=== PATIENT | male | born 1995 | race Caucasian/White ===

== ENCOUNTER 2016-04-20 12:12 | Emergency (ER) | payer SELFPAY ==
[~2016-04-20] VITALS: Ht 182.9 cm; Wt 79.5 kg
[2016-04-20 12:14] VITALS: BP 157/74; PULSE 92; RESP 16; TEMP 98.5; O2SAT 95
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
--- NOTE | 2016-04-20 13:11 | RADRPT ---
EXAM DATE/TIME: 04/20/2016 12:43 [facility] COMPARISON: No previous studies available for comparison. INDICATIONS : Right ankle pain. Patient states he rolled his ankle yesterday. MEDICAL HISTORY : None. SURGICAL HISTORY : None. ENCOUNTER: Initial ACUITY: 2 days PAIN SCORE: 5/10 LOCATION: Right lateral ankle. FINDINGS: Three view exam was performed of the right ankle. There is a tiny cortical also fracture of the tip o f the fibula. There is soft tissue swelling over the lateral malleolus. There is good alignment at th e mortise joint. There are some mild degenerative changes along the medial malleolus.. CONCLUSION: Tiny mildly displaced cortical chip fracture off the tip of the fibula. Que Rodney MD on April 20, 2016 at 13:09 Board Certified Radiologist. This report was verified electronically.
== END 2016-04-20 14:03 | disposition home or self-care (01) ==
LOC: NEPB 12:12
DX: S82.401A Unspecified fracture of shaft of right fibula, initial encounter for closed fracture (principal); V18.0XXA Pedal cycle driver injured in noncollision transport accident in nontraffic accident, initial encounter; Y93.55 Activity, bike riding; Y92.9 Unspecified place or not applicable; Y99.9 Unspecified external cause status
CPT/HCPCS: 29515; 73610

== ENCOUNTER 2017-02-22 13:53 | Inpatient (IN) | payer MEDICAID, OTHER ==
[~2017-02-22] VITALS: Ht 180.3 cm; Wt 100.6 kg
[2017-02-22 14:00] VITALS: BP 153/91; PULSE 90; RESP 20; TEMP 98.3; O2SAT 99
--- NOTE | 2017-02-22 14:59 | PD ---
HPI Chief Complaint: Injury Time Seen by Provider: 14:50 Travel History International Travel<30 days: No Contact w/Intl Traveler<30days: No Traveled to known affect area: No History of Present Illness HPI 21-year-old male complains of right leg pain. Patient was doing trampoline and did a back flip and landed on his leg. Patient states he has severe pain localized to right low leg. Patient states the pain is sharp pain localized to right low leg. Patient denies any pain radiation. Patient states that the pain is worse with weightbearing. On a scale of 1-10 the pain is a 10. PFSH Past Medical History Medical History: Denies Significant Hx Social History Alcohol Use: No Tobacco Use: No Substance Use: No Allergies-Medications (Allergen,Severity, Reaction): Coded Allergies: No Known Allergies (Unverified Adverse Reaction, Unknown, 02/22/17) Reported Meds & Prescriptions Reported Meds & Active Scripts Active No Active Prescriptions or Reported Medications Review of Systems General / Constitutional: No: Fever Eyes: No: Visual changes HENT: No: Headaches Cardiovascular: No: Chest Pain or Discomfort Respiratory: No: Shortness of Breath Gastrointestinal: No: Abdominal Pain Genitourinary: No: Dysuria Musculoskeletal: Positive: Pain Skin: No Rash Neurologic: No: Weakness Psychiatric: No: Depression Endocrine: No: Polydipsia Hematologic/Lymphatic: No: Easy Bruising Physical Exam Narrative GENERAL: Well-nourished, well-developed patient. SKIN: Focused skin assessment warm/dry. HEAD: Normocephalic. EYES: No scleral icterus. No injection or drainage. NECK: Supple, trachea midline. No JVD or lymphadenopathy. CARDIOVASCULAR: Regular rate and rhythm without murmurs, gallops, or rubs. RESPIRATORY: Breath sounds equal bilaterally. No accessory muscle use. GASTROINTESTINAL: Abdomen soft, non-tender, nondistended. MUSCULOSKELETAL: Patient has mild soft tissue swelling with moderate to severe tenderness distal tibia-fibula area. Sensorimotor function distally intact. Good DP pulses. BACK: Nontender without obvious deformity. No CVA tenderness. Neurologic exam normal. Data Data Last Documented VS Vital Signs Date Time Temp Pulse Resp B/P (MAP) Pulse Ox O2 Delivery O2 Flow Rate FiO2 02/22/17 14:00 98.3 90 20 153/91 (111) 99 Room Air Orders Orders Tibia/Fibula (Ap/Lat) (02/22/17 14:54) Sodium Chlor 0.9% 1000 Ml Inj (Ns 1000 M (02/22/17 15:00) Morphine Inj (Morphine Inj) (02/22/17 15:00) MDM Medical Decision Making Medical Screen Exam Complete: Yes Emergency Medical Condition: Yes Differential Diagnosis Differential diagnosis including contusion, fracture, dislocation. Narrative Course 21-year-old male with injury to right low leg. Normal saline solution 1 25 cc an hour. Morphine 2 mg IV. Zofran 4 mg IV. Scripts No Active Prescriptions or Reported Meds Arjun Morgan MD Feb 22, 2017 14:59
[2017-02-22 15:00] VITALS: BP 129/85; PULSE 78; RESP 16; O2SAT 98
[2017-02-22] MEDS ORDERED: MORPHINE SULFATE 2 MG/ML INJ IV PUSH ONE ×2 (15:00→15:45)
[2017-02-22] MEDS: SODIUM CHLOR 0.9% 1000 ML INJ 1,000 ML IV SCH ×2 (15:07→21:50)
--- NOTE | 2017-02-22 15:54 | RADRPT ---
EXAM DATE/TIME: 02/22/2017 15:14 [facility] COMPARISON: No previous studies available for comparison. INDICATIONS : Pain post fall. MEDICAL HISTORY : None. SURGICAL HISTORY : None. ENCOUNTER: Initial ACUITY: 1 day PAIN SCORE: 10/10 LOCATION: Right Lower leg. FINDINGS: Two view examination of the right tibia demonstrates a oblique fracture through the midshaft of the l eft tibia. There is slight medial angulation. There is a medial fibular fracture with a prominent int ercalary fragment. Bony mineralization is normal. The soft tissue structures are intact. CONCLUSION: Spiral fractures of both the tibia and fibula. Nomi Saunders MD on February 22, 2017 at 15:51 Board Certified Radiologist. This report was verified electronically.
[2017-02-22 16:00] VITALS: BP 152/78; PULSE 80; RESP 18; O2SAT 99
[2017-02-22 16:11] LABS: AUTOMATED NEUTROPHIL # 11.5 TH/MM3 (1.8-7.7); BASOPHIL % 0.2 % (0.0-2.0); EOSINOPHIL % 0.3 % (0.0-4.0); HEMATOCRIT 46.7 % (39.0-51.0); HEMO FLAGS DIFF FINAL; LYMPH % 13.1 % (9.0-44.0); LYMPHOCYTE # 1.8 TH/MM3 (1.0-4.8); MEAN CELL VOLUME 91.8 FL (80.0-100.0); MEAN CORPUSCULAR HEMOGLOBIN 31.1 PG (27.0-34.0); MEAN CORPUSCULAR HGB CONC 33.8 % (32.0-36.0); MONO % 4.3 % (0.0-8.0); NEUT % 82.1 % (16.0-70.0); PLATELET COUNT 285 TH/MM3 (150-450); RED BLOOD COUNT 5.08 MIL/MM3 (4.50-5.90); RED CELL DISTRIBUTION WIDTH 12.3 % (11.6-17.2)
[2017-02-22 16:41] LABS: BICARBONATE 29.2 MEQ/L (21.0-32.0)
[2017-02-22 17:00] VITALS: BP 154/89; PULSE 86; RESP 16; O2SAT 100
[2017-02-22] MEDS ORDERED: BISACODYL 10 MG SUPP RECTAL PRN (17:15)
[2017-02-22] MEDS ORDERED: MAGNESIUM HYDROXIDE SUSP 30 ML CUP PO PRN (17:15)
[2017-02-22] MEDS ORDERED: diphenhydrAMINE HCL 25 MG CAP PO PRN (17:15)
[2017-02-22] MEDS ORDERED: SENNOSIDES 8.6 MG TAB PO PRN (17:15)
[2017-02-22] MEDS ORDERED: LACTULOSE SYRUP 20 GM/30 ML CUP PO PRN (17:15)
[2017-02-22] MEDS ORDERED: ACETAMINOPHEN/HYDROcodone 325 MG/7.5 MG TAB PO PRN (17:15)
[2017-02-22] MEDS ORDERED: SODIUM CHLORIDE 0.9% FLUSH 10 ML FLUSH IV FLUSH PRN (17:15)
[2017-02-22] MEDS ORDERED: ONDANSETRON HCL 4 MG/2 ML VIAL IVP PRN (17:15)
[2017-02-22] MEDS: ACETAMINOPHEN/HYDROcodone 325 MG/10 MG TAB PO PRN ×2 (17:54→21:56)
[2017-02-22 18:05] VITALS: BP 159/90; PULSE 94; RESP 16; TEMP 97.8; O2SAT 99
[2017-02-22] MEDS: MORPHINE SULFATE 2 MG/ML INJ IV PUSH PRN ×2 (19:52→23:38)
[2017-02-22] MEDS: DOCUSATE SODIUM 50 MG/SENNA 8.6 MG TAB PO SCH (19:55)
[2017-02-22 20:48] VITALS: BP 155/87; PULSE 95; RESP 18; TEMP 99.7; O2SAT 99
[2017-02-22] MEDS: SODIUM CHLORIDE 0.9% FLUSH 10 ML FLUSH IV FLUSH SCH (21:00)
[2017-02-23 00:06] VITALS: BP 153/85; PULSE 86; RESP 18; TEMP 98; O2SAT 99
[2017-02-23] MEDS: SODIUM CHLOR 0.9% 1000 ML INJ 1,000 ML IV SCH ×3 (03:20→23:00)
[2017-02-23] MEDS: ACETAMINOPHEN/HYDROcodone 325 MG/10 MG TAB PO PRN ×3 (03:50→18:51)
[2017-02-23 04:39] VITALS: BP 152/83; PULSE 74; RESP 18; TEMP 97.7; O2SAT 100
[2017-02-23] MEDS ORDERED: LACTATED RINGER'S 1000 ML IV PRN (05:45)
[2017-02-23] MEDS ORDERED: CHLORHEXIDINE GLUCONATE 2 % 1 PACK (2 CLOTHS) TOPICAL PRN (05:45)
[2017-02-23] MEDS ORDERED: POVIDONE IODINE 5% (ANTISEPSIS KIT) 4 APPLICATIONS EACH NARE PRN (05:45)
--- NOTE | 2017-02-23 06:43 | HHI.HP ---
HPI Service Orthopedic Surgeons Primary Care Physician No Primary Care Physician Admission Diagnosis Right Tibia and fibula fractures Diagnoses: (1) Tibia/fibula fracture, shaft Diagnosis: Principal Chief Complaint: Right leg pain s/p fall Travel History International Travel<30 Days: No Contact w/Intl Traveler <30 Da: No Traveled to Known Affected Are: No History of Present Illness Patient admitted to hospital s/p fall from trampoline doing back flip. reports right leg pain. no other complaint. denies numbness, tingling, loss of sensation. denies dizziness Review of Systems Constitutional: DENIES: Diaphoretic episodes, Fatigue, Fever, Weight gain, Weight loss, Chills, Dizziness, Change in appetite, Night Sweats Endocrine: DENIES: Heat/cold intolerance, Polydipsia, Polyuria, Polyphagia Eyes: DENIES: Blurred vision, Diplopia, Eye inflammation, Eye pain, Vision loss , Photosensitivity, Double Vision Ears, nose, mouth, throat: DENIES: Tinnitus, Hearing loss, Vertigo, Nasal discharge, Oral lesions, Throat pain, Hoarseness, Ear Pain, Running Nose, Epistaxis, Sinus Pain, Toothache, Odynophagia Respiratory: DENIES: Apneas, Cough, Snoring, Wheezing, Hemoptysis, Sputum production, Shortness of breath Cardiovascular: DENIES: Chest pain, Palpitations, Syncope, Dyspnea on Exertion , PND, Lower Extremity Edema, Orthopnea, Claudication Gastrointestinal: DENIES: Abdominal pain, Black stools, Bloody stools, Constipation, Diarrhea, Nausea, Vomiting, Difficulty Swallowing, Anorexia Genitourinary: DENIES: Sexual dysfunction, Urinary frequency, Urinary incontinence, Urgency, Hematuria, Dysuria, Nocturia, Penile Discharge, Testicular Pain, Testicular Swelling Musculoskeletal: DENIES: Joint pain, Muscle aches, Stiffness, Joint Swelling, Back pain, Neck pain Integumentary: DENIES: Abnormal pigmentation, Nail changes, Pruritus, Rash Hematologic/lymphatic: DENIES: Bruising, Lymphadenopathy Immunologic/allergic: DENIES: Eczema, Urticaria Neurologic: DENIES: Abnormal gait, Headache, Localized weakness, Paresthesias, Seizures, Speech Problems, Tremor, Poor Balance Psychiatric: DENIES: Anxiety, Confusion, Mood changes, Depression, Hallucinations, Agitation, Suicidal Ideation, Homicidal Ideation, Delusions Past Family Social History Past Medical History noncontributory Past Surgical History tear duct surgery as an Reported Medications none Allergies: Coded Allergies: No Known Allergies (Unverified Adverse Reaction, Unknown, 02/22/17) Active Ordered Medications Current Medications Medications (Trade) Dose Ordered Sig/Lizzy Route Start Time Stop Time Status Last Admin Sodium Chloride 1,000 ml @ 125 mls/hr Q8H IV 02/22/17 15:00 02/22/17 15:07 (NS Flush) 2 ml UNSCH PRN IV FLUSH 02/22/17 17:15 (NS Flush) 2 ml BID IV FLUSH 02/22/17 21:00 (Zofran Inj) 4 mg Q4H PRN IVP 02/22/17 17:15 (Benadryl) 25 mg Q6H PRN PO 02/22/17 17:15 (Pippa-Colace) 1 tab BID PO 02/22/17 21:00 02/22/17 19:55 (Milk Of Magnesia Liq) 30 ml Q12H PRN PO 02/22/17 17:15 (Senokot) 17.2 mg Q12H PRN PO 02/22/17 17:15 02/22/17 19:55 (Dulcolax Supp) 10 mg DAILY PRN RECTAL 02/22/17 17:15 (Lactulose Liq) 30 ml DAILY PRN PO 02/22/17 17:15 ([place] 7.5-325 Mg) 1 tab Q4H PRN PO 02/22/17 17:15 ([place] 10-325 Mg) 1 tab Q4H PRN PO 02/22/17 17:15 02/23/17 03:50 (Morphine Inj) 2 mg Q3H PRN IV PUSH 02/22/17 17:15 02/22/17 23:38 Lactated Ringer's 1,000 ml @ 30 mls/hr Q24H PRN IV 02/23/17 05:45 02/26/17 05:44 02/23/17 05:57 (Betadine 5% Antisepsis Kit) 1 applic [employer]PERATOR PRN EACH NARE 02/23/17 05:45 02/26/17 05:44 (Chlorhexidine 2% Cloth) 3 pack [employer] OPERATOR PRN TOPICAL 02/23/17 05:45 02/26/17 05:44 Reported Meds & Active Scripts Active No Active Prescriptions or Reported Medications Family History noncontributory Social History denies alcohol, smoking, elicit drug use Physical Exam Vital Signs Vital Signs Date Time Temp Pulse Resp B/P (MAP) Pulse Ox O2 Delivery O2 Flow Rate FiO2 02/23/17 04:39 97.7 74 18 152/83 (106) 100 02/23/17 00:06 98.0 86 18 153/85 (107) 99 02/22/17 20:48 99.7 95 18 155/87 (109) 99 02/22/17 18:05 97.8 94 16 159/90 (113) 99 02/22/17 17:41 02/22/17 17:00 86 16 154/89 (110) 100 Room Air 02/22/17 16:00 80 18 152/78 (102) 99 Room Air 02/22/17 15:00 78 16 129/85 (100) 98 Room Air 02/22/17 14:00 98.3 90 20 153/91 (111) 99 Room Air Physical Exam RLE: +short leg splint. intact. NVI LLE: full motion no pain,. nvi BUE: full motion. no pain. nvi Laboratory Laboratory Tests Test 02/22/17 15:40 White Blood Count 14.0 Red Blood Count 5.08 Hemoglobin 15.8 Hematocrit 46.7 Mean Corpuscular Volume 91.8 Mean Corpuscular Hemoglobin 31.1 Mean Corpuscular Hemoglobin Concent 33.8 Red Cell Distribution Width 12.3 Platelet Count 285 Mean Platelet Volume 7.6 Neutrophils (%) (Auto) 82.1 Lymphocytes (%) (Auto) 13.1 Monocytes (%) (Auto) 4.3 Eosinophils (%) (Auto) 0.3 Basophils (%) (Auto) 0.2 Neutrophils # (Auto) 11.5 Lymphocytes # (Auto) 1.8 Monocytes # (Auto) 0.6 Eosinophils # (Auto) 0.0 Basophils # (Auto) 0.0 CBC Comment DIFF FINAL Differential Comment Blood Urea Nitrogen 17 Creatinine 0.90 Random Glucose 110 Calcium Level 9.8 Sodium Level 141 Potassium Level 4.0 Chloride Level 107 Carbon Dioxide Level 29.2 Anion Gap 5 Estimat Glomerular Filtration Rate 108 Result Diagram: 02/22/17 1540 02/22/17 1540 Caprini VTE Risk Assessment Caprini VTE Risk Assessment: No/Low Risk (score <= 1) Caprini Risk Assessment Model Point Value = 1 Point Value = 2 Point Value = 3 Point Value = 5 Age 41-60 Minor surgery BMI > 25 kg/m2 Swollen legs Varicose veins or History of unexplained or recurrent spontaneous Oral contraceptives or hormone replacement Sepsis (< 1 month) Serious lung disease, including pneumonia (< 1 month) Abnormal pulmonary function Acute myocardial infarction Congestive heart failure (< 1 month) History of inflammatory bowel disease Medical patient at bed rest Age 61-74 Arthroscopic surgery Major open surgery (> 45 min) Laparoscopic surgery (> 45 min) Malignancy Confined to bed (> 72 hours) Immobilizing plaster cast Central venous access Age >= 75 History of VTE Family history of VTE Factor V Leiden Prothrombin [id number] Lupus anticoagulant Anticardiolipin antibodies Elevated serum homocysteine Heparin-induced thrombocytopenia Other congenital or acquired thrombophilia Stroke (< 1 month) Elective arthroplasty Hip, pelvis, or leg fracture Acute spinal cord injury (< 1 month) Prophylaxis Regimen Total Risk Factor Score Risk Level Prophylaxis Regimen 0-1 Low Early ambulation 2 Moderate Order ONE of the following: *Sequential Compression Device (SCD) *Heparin 5000 units SQ BID 3-4 Higher Order ONE of the following medications: *Heparin 5000 units SQ TID *Enoxaparin/Lovenox 40 mg SQ daily (WT < 150 kg, CrCl > 30 mL/min) *Enoxaparin/Lovenox 30 mg SQ daily (WT < 150 kg, CrCl > 10-29 mL/min) *Enoxaparin/Lovenox 30 mg SQ BID (WT < 150 kg, CrCl > 30 mL/min) AND/OR *Sequential Compression Device (SCD) 5 or more Highest Order ONE of the following medications: *Heparin 5000 units SQ TID (Preferred with Epidurals) *Enoxaparin/Lovenox 40 mg SQ daily (WT < 150 kg, CrCl > 30 mL/min) *Enoxaparin/Lovenox 30 mg SQ daily (WT < 150 kg, CrCl > 10-29 mL/min) *Enoxaparin/Lovenox 30 mg SQ BID (WT < 150 kg, CrCl > 30 mL/min) AND *Sequential Compression Device (SCD) Assessment & Plan Problem List: (1) Tibia/fibula fracture, shaft ICD Codes: S82.209A - Unspecified fracture of shaft of unspecified tibia, initial encounter for closed fracture; S82.409A - Unspecified fracture of shaft of unspecified fibula, initial encounter for closed fracture Qualifiers: Qualified Codes: S82.201A - Unspecified fracture of shaft of right tibia, initial encounter for closed fracture; S82.401A - Unspecified fracture of shaft of right fibula, initial encounter for closed fracture Assessment and Plan 1) right Tibia and fibula shaft fxs -npo -NWB -surgery today for IMN right tibia Epifanio Hastings/Chief Information Security Officer RADHA Feb 23, 2017 06:43
--- NOTE | 2017-02-23 07:03 | MH ---
cc: MAYO ALLEN DATE OF ADMISSION: 02/22/2017 DATE OF ADMISSION 02/22/2017 DATE OF CONSULTATION 02/23/2017 REASON FOR CONSULTATION Right tibia shaft fracture. HISTORY Guanako is a 21-year-old male who was at [employer]. He was doing a back flip on a trampoline. He landed awkwardly on his right leg. He had immediate right leg pain. He was unable to stand or ambulate. He presented to the emergency room where x-rays revealed a right tibial shaft fracture. His only complaint is his right lower leg. He had no dizziness, syncope or loss of consciousness. He had no pain prior to this injury. PAST MEDICAL HISTORY ILLNESSES None. SURGERIES Tear duct surgery as an infant. ALLERGIES None. MEDICATIONS None. SOCIAL HISTORY The patient denies alcohol, tobacco or drug use. REVIEW OF SYSTEMS The patient denies headache, visual changes, neck pain, chest pain, shortness of breath, abdominal pain, nausea, vomiting or recent weight loss, bowel or bladder incontinence or numbness or tingling of extremities. He complains of right leg pain. The pain is worse with movement. PHYSICAL EXAMINATION GENERAL: The patient is a well-developed, well-nourished 21-year-old male. He is awake and alert. He is alert and oriented x3. He is in no acute distress. VITAL SIGNS: Temperature 97.7, pulse 74, respirations 18, blood pressure 152/83, O2 sat is 100% on room air. HEAD: The patient is normocephalic, atraumatic. Pupils are equal. NECK: Soft, nontender. Trachea is midline. ABDOMEN: Soft, nontender, nondistended. EXTREMITIES: Examination of the bilateral upper extremities reveals no pain with shoulder, elbow or wrist motion. He has intact sensation in all fingers. He has good capillary refill in all fingers. Skin is intact. Radial pulses are palpable. Examination of the left leg reveals no pain with hip, knee or ankle motion. Skin is intact. Dorsalis pedis pulse is palpable. Sensation is intact. Examination of the right leg reveals no pain or tenderness around his hip or knee. He is diffusely tender around the tibia. He has mild swelling present. Calf compartments are soft. He has intact sensation in all toes. He has good capillary refill in all toes. He has minimal pain with passive range of motion of his toes. X-RAYS X-rays of the right tibia were reviewed. X-rays reveal a displaced right mid-shaft tibia fracture. IMPRESSION Displaced right tibia fracture. PLAN The treatment options were discussed with the patient. At this point I would recommend reduction and intramedullary nail fixation of the right tibia. The risks of surgery include bleeding, infection, injury to arteries, nerves and blood vessels, nonunion, malunion, painful hardware, knee pain as well as medical complications including blood clot, stroke, heart attack and . All questions were answered. I will plan on surgery today. A mid-level provider in my office, nurse practitioner or PA, may see this patient on a follow-up basis and continue to implement the objective of this plan including: Starting or adjusting medications, injections of muscle, tendon, bursa or joints, cast application, orthotic or brace application, physical therapy, further radiographic studies including x-ray, MRI, CT, ultrasounds or bone scan, vascular studies, neurologic studies, or other specialist consultations, and proceeding with surgical management as appropriate. MD NAVIN Donovan/RAFFY /6:37 AM /6:44 AM
[2017-02-23] MEDS ORDERED: ceFAZolin 2 GM PREMIX 50 ML ONE (07:07)
[2017-02-23] MEDS ORDERED: VANCOMYCIN HCL 1000 MG VIAL ONE (07:07)
[2017-02-23] MEDS ORDERED: SODIUM CHLOR 0.9% 250 ML INJ 250 ML ONE (07:07)
[2017-02-23] MEDS ORDERED: GENTAMICIN SULFATE 80 MG/2 ML VIAL ONE (07:07)
[2017-02-23] MEDS ORDERED: ACETAMINOPHEN 1000 MG/100 ML 100 ML IV ONE (07:14)
[2017-02-23] MEDS ORDERED: WALKER/ADULT/FO1 MIS (07:53)
[2017-02-23] MEDS ORDERED: HYDR-3583 PO (07:53)
[2017-02-23] MEDS ORDERED: XARE10TA PO (07:53)
--- NOTE | 2017-02-23 08:58 | PD.OP ---
cc: Juan M Narayan MD Operative Report Date of Surgery: Feb 23, 2017 Preoperative Diagnosis: Displaced right tibial shaft fracture Postoperative Diagnosis: Procedure: Right tibia reduction and intramedullary nail fixation Anesthesia: Gen. Surgeon: Juan M Narayan Roll Over Loader(s): JHONY Musa PA-C The surgical procedure was assisted by my physician bilingual office assistant. My P.A. presence was necessary throughout this case for the manipulation and positioning of the surgical extremity. My P.A. was assisting me throughout the duration of this procedure. The skill set of a physician bilingual office assistant was medically necessary to complete this procedure. During the surgical case the neurosurgical physician assistant was working at the back table and the physician bilingual office assistant was directly assisting me. Operation and Findings: Implants: ITS [9]mm x [345]mm tibial nail Plan of activity: Toe-touch weightbearing 3 weeks, then 50% weightbearing 3 weeks Patient was seen and examined preoperatively. An informed consent was obtained from patient after detailed discussion of risk and benefits. Risks of surgery include bleeding, infection, painful hardware, nonunion, malunion, leg length discrepancy, need for hardware removal, and medical complications associated with anesthesia including blood clots, stroke, heart attack, and were discussed. Operative site was marked. Patient was brought to the operating room placed on or table. Patient received IV antibiotics and was given IV sedation GETA. Operative leg was prepped with alcohol Hibiclens and draped in usual sterile fashion. Timeout procedure was performed Procedure began with reduction of fracture. 2 small incisions were made around the fracture site. A percutaneous clamp was placed. Traction was applied. Fracture was reduced. There was comminution of the fracture. The fracture reduced and excellent alignment was achieved. Fracture clamp was used to aid in reduction. Next a 3 cm incision was made proximal to the patella. Quadriceps tendon was split in line with fibers. Cannulas were placed in the patellofemoral joint to protect the articular surface at all times. A guidepin was placed into the tibia and advanced in the tibial canal. Fluoroscopy was used to confirm appropriate guidepin placement. An opening reamer was used to open the tibial canal. A ball-tipped guidewire was advanced down the tibial canal. Guidepin was passed across the fracture site into the center of the distal tibia. Fluoroscopy confirmed guidepin placement. The nail length was now measured. The fracture was now held in a reduced position and the canal was reamed. The canal was reamed up to appropriate size. A Synthes nail was now selected. Next the nail was fully seated. Using perfect [place] technique 2 distal interlocking screws were placed. Using the insertion handle as a guide 2 proximal interlocking screws were placed. Fluoroscopy confirmed excellent of fracture with well-placed hardware. Incisions and the knee joint were thoroughly irrigated with sterile saline. Fascia was closed with #1 Vicryl , subcutaneous tissues closed with 3-0 Vicryl and skin was closed with sirena. Sterile dressings were applied. Patient was awakened and transferred to recovery in stable condition. Juan M Narayan MD Feb 23, 2017 08:58
[2017-02-23] MEDS ORDERED: MORPHINE SULFATE 4 MG/ML INJ IV PUSH PRN (09:00)
[2017-02-23] MEDS: CALCIUM/VITAMIN D 250 MG/125 U TAB PO SCH ×3 (09:00→18:51)
[2017-02-23] MEDS: SODIUM CHLORIDE 0.9% FLUSH 10 ML FLUSH IV FLUSH SCH ×2 (09:00→21:00)
[2017-02-23] MEDS: DOCUSATE SODIUM 50 MG/SENNA 8.6 MG TAB PO SCH ×2 (09:00→21:17)
[2017-02-23] MEDS ORDERED: MIDAZOLAM HCL 2 MG/2 ML VIAL ONE (09:26)
[2017-02-23] MEDS ORDERED: DO NOT ADM ANY ANTICOAGULANT DRUGS PRN (09:30)
[2017-02-23] MEDS: LACTATED RINGER'S 1000 ML INJ 1,000 ML IV SCH ×2 (09:40→18:54)
[2017-02-23] MEDS ORDERED: *MEPERIDINE 25 MG INJ VIAL PERIprocedural Use ONLY ONE (09:44)
[2017-02-23 10:30] VITALS: BP 165/95; PULSE 78; RESP 18; TEMP 96.6; O2SAT 100
[2017-02-23] MEDS ORDERED: ERGOCALCIFEROL (VIT D2) 50,000 UNIT CAP PO SCH (12:00)
[2017-02-23 12:55] VITALS: O2SAT 100
--- NOTE | 2017-02-23 12:59 | RADRPT ---
EXAM DATE/TIME: 02/23/2017 08:45 [facility] COMPARISON: TIBIA/FIBULA RIGHT (AP/LAT), February 22, 2017, 15:14. INDICATIONS : ORIF right tibia fracture. MEDICAL HISTORY : Unobtainable. SURGICAL HISTORY : Unobtainable. ENCOUNTER: Subsequent ACUITY: 1 day PAIN SCORE: Non-responsive. LOCATION: Right tibia. FINDINGS: IM davi in the tibia anatomic alignment. CONCLUSION: Anatomic alignment.. Jhon Damon MD FACR on February 23, 2017 at 12:56 Board Certified Radiologist. This report was verified electronically.
[2017-02-23 16:00] VITALS: BP 161/82; PULSE 89; RESP 18; TEMP 98.5; O2SAT 99
[2017-02-23] MEDS: ceFAZolin 2 GM PREMIX 50 ML IV SCH (16:55)
[2017-02-23] MEDS: ASCORBIC ACID 500 MG TAB PO SCH (18:51)
[2017-02-23] MEDS: CHOLECALCIFEROL (VIT D3) 1000 UNIT TAB PO SCH (18:51)
[2017-02-23 20:00] VITALS: BP 162/74; PULSE 85; RESP 22; TEMP 100.2; O2SAT 99
[2017-02-23] MEDS: VANCOMYCIN INJ 1,000 MG in SODIUM CHLOR 0.9% 250 ML INJ 250 ML IV SCH (20:30)
[2017-02-23] MEDS ORDERED: ENOXAPARIN SODIUM 40 MG/0.4 ML SYRINGE SQ SCH (21:00)
[2017-02-24] VITALS: BP 150/78; PULSE 90; RESP 22; TEMP 99.6; O2SAT 97
[2017-02-24] MEDS: ceFAZolin 2 GM PREMIX 50 ML IV SCH ×2 (01:11→09:04)
[2017-02-24] MEDS: ACETAMINOPHEN/HYDROcodone 325 MG/10 MG TAB PO PRN ×4 (01:12→15:38)
[2017-02-24 04:00] VITALS: BP 152/74; PULSE 89; RESP 20; TEMP 99.1; O2SAT 98
[2017-02-24] MEDS: SODIUM CHLOR 0.9% 1000 ML INJ 1,000 ML IV SCH (07:00)
[2017-02-24 08:00] VITALS: BP 150/82; PULSE 92; RESP 18; TEMP 97.2; O2SAT 99
[2017-02-24] MEDS: SODIUM CHLORIDE 0.9% FLUSH 10 ML FLUSH IV FLUSH SCH (09:00)
[2017-02-24] MEDS: CHOLECALCIFEROL (VIT D3) 1000 UNIT TAB PO SCH (09:03)
[2017-02-24] MEDS: DOCUSATE SODIUM 50 MG/SENNA 8.6 MG TAB PO SCH (09:03)
[2017-02-24] MEDS: CALCIUM/VITAMIN D 250 MG/125 U TAB PO SCH (09:03)
[2017-02-24] MEDS: ASCORBIC ACID 500 MG TAB PO SCH (09:04)
[2017-02-24] MEDS: VANCOMYCIN INJ 1,000 MG in SODIUM CHLOR 0.9% 250 ML INJ 250 ML IV SCH (10:40)
[2017-02-24] MEDS ORDERED: VANCOMYCIN INJ 1,000 MG in SODIUM CHLOR 0.9% 250 ML INJ 250 ML IV ONE (10:45)
[2017-02-24 12:00] VITALS: BP 137/76; PULSE 87; RESP 18; TEMP 97.6; O2SAT 97
== END 2017-02-24 16:21 | disposition home or self-care (01) | DRG 494 ==
LOC: NEPD 13:53 → NEDA 17:11 → N06A 17:49
PROVIDERS: ADMIT Orthopaedic Surgery Orthopaedic Trauma; ATTEND Orthopaedic Surgery Orthopaedic Trauma
PROC: 0QSG06Z Reposition Right Tibia with Intramedullary Internal Fixation Device, Open Approach (ICD-10-PCS; principal; 2017-02-23 07:22)
DX: S82.241A Displaced spiral fracture of shaft of right tibia, initial encounter for closed fracture (principal); S82.441A Displaced spiral fracture of shaft of right fibula, initial encounter for closed fracture; W09.8XXA Fall on or from other playground equipment, initial encounter; Y92.39 Other specified sports and athletic area as the place of occurrence of the external cause; Y93.44 Activity, trampolining
CPT/HCPCS: 36415; 73590; 76000; 80048; 85025; 94150; 96361; 96374; 96375; J0131; J0690; J1580; J1650; J2175; J2250; J2270; J3010; J3370; J7030; J7050; J7120; L1830